=== PATIENT | female | born 2000 | race Caucasian/White ===

== ENCOUNTER 2025-03-07 12:33 | Outpatient (CLI) | payer BC | END 2025-03-07 12:34 | disposition home or self-care (01) | LOC: SCSRAD 12:33 | PROVIDERS: ATTEND Internal Medicine Rheumatology | DX: M05.79 Rheumatoid arthritis with rheumatoid factor of multiple sites without organ or systems involvement (principal); M54.2 Cervicalgia; M54.6 Pain in thoracic spine; M41.9 Scoliosis, unspecified; M43.8X5 Other specified deforming dorsopathies, thoracolumbar region | CPT/HCPCS: 72052; 72072 ==